=== PATIENT | female | born 1985 | race Caucasian/White ===

== ENCOUNTER 2019-05-11 10:00 | Inpatient (IN) ==
[2019-05-11] MEDS ORDERED: TUBERSOL ID ONE (13:07)
[2019-05-11] MEDS ORDERED: IMODIUM PO PRN (13:07)
[2019-05-11] MEDS ORDERED: SALINE LOCK IV FLUID XX ONE (13:07)
[2019-05-11] MEDS ORDERED: MAALOX PLUS LIQUID PO PRN (13:07)
[2019-05-11] MEDS ORDERED: DESYREL PO PRN (13:07)
[2019-05-11] MEDS ORDERED: SENOKOT PO PRN (13:07)
[2019-05-11] MEDS ORDERED: NICODERM PATCH TD PRN (13:07)
[2019-05-11] MEDS ORDERED: D5W 1,000 ML IV PRN (13:07)
[2019-05-11] MEDS ORDERED: DULCOLAX PR PRN (13:07)
[2019-05-11] MEDS ORDERED: ZOFRAN IV PRN (13:07)
[2019-05-11] MEDS ORDERED: PHENOBARBITAL IV PRN (13:07)
[2019-05-11] MEDS ORDERED: ZOFRAN ODT PO PRN (13:07)
[2019-05-11] MEDS ORDERED: BENTYL PO PRN (13:07)
[2019-05-11] MEDS ORDERED: MOTRIN PO PRN (13:07)
[2019-05-11] MEDS ORDERED: ATARAX PO PRN (13:07)
[2019-05-11 13:35] LABS: HEMATOCRIT 32.8 % (37.0-47.0); HEMOGLOBIN 10.6 g/dL (12.0-16.0); MCH 28.9 PG (27-31); MCHC 32.3 g/dL (33-37); MCV 89.4 FL (81-99); MPV 9.1 FL (7.4-10.4); RBC 3.67 XMIL (4.2-5.4); RDW 12.3 % (11.5-14.5); WBC 7.61 X1000 (4.8-10.8)
[2019-05-11 13:37] LABS: URINE SOURCE CLEAN CATCH
[2019-05-11 13:48] LABS: BILIRUBIN URINE NEGATIVE (NEGATIVE); BLOOD URINE NEGATIVE (NEGATIVE); COLOR STRAW; GLUCOSE URINE NEGATIVE (NEGATIVE); KETONE URINE NEGATIVE (NEGATIVE); LEUKOCYTES URINE SMALL (NEGATIVE); NITRITE URINE NEGATIVE (NEGATIVE); PROTEIN URINE NEGATIVE (NEGATIVE); SP GRAVITY URINE 1.007; TURBIDITY URINE CLEAR (CLEAR); UROBILINOGEN URINE NORMAL (NORMAL)
[2019-05-11 13:49] LABS: UR EPITHELIAL CELLS <10 /HPF (<10); URINE BACTERIA NEGATIVE /HPF; URINE RBC <10 /HPF (<10); URINE WBC <10 /HPF (<10)
[2019-05-11 13:50] LABS: INR 0.87; PROTIME 12.2 Seconds (11.0-16.0)
[2019-05-11 13:53] LABS: AMYLASE 42 U/L (20-200); LIPASE 23 U/L (13-60)
[2019-05-11 13:57] LABS: AGAP 13; ALBUMIN 3.8 g/dL (3.5-5.0); ALKALINE PHOSPHATASE 130 U/L (32-104); BUN 4 mg/dL (8-22); CALCIUM 8.8 mg/dL (8.8-10.2); CHLORIDE 98 mmol/L (98-107); COSMO 266; CREATININE 0.4 mg/dL (0.5-0.9); ESTIMATED GFR > 60; GLUCOSE 88 mg/dL (70-104); GOT 113 U/L (10-30); GPT 115 U/L (10-36); POTASSIUM 3.6 mmol/L (3.5-5.1); SODIUM 135 mmol/L (136-145); TCO2 24 mmol/L (25-35)
[2019-05-11 13:58] LABS: UR AMPHETAMINES QUAL PRESUMPTIVE POSITIVE (NONE DETECT); UR BARBITUATES QUAL NONE DETECTED (NONE DETECT); UR BENZODIAZEPIN QUAL PRESUMPTIVE POSITIVE (NONE DETECT); UR COCAINE QUAL NONE DETECTED (NONE DETECT); UR METHADONE QUAL NONE DETECTED (NONE DETECT); UR METHAMPHETAMINE QUAL PRESUMPTIVE POSITIVE (NONE DETECT); UR OXYCODONE QUAL PRESUMPTIVE POSITIVE (NONE DETECT)
[2019-05-11 13:59] LABS: UR CANNABINOIDS QUAL NONE DETECTED (NONE DETECT); UR OPIATES QUAL NONE DETECTED (NONE DETECT); UR PCP QUAL NONE DETECTED (NONE DETECT); UR PROPOXYPHENE QUAL NONE DETECTED (NONE DETECT); UR TCA QUAL NONE DETECTED (NONE DETECT)
[2019-05-11] MEDS ORDERED: M.V.I.-12 10 ML, FOLIC ACID 1 MG, MAGNESIUM SULFATE 1 GM, THIAMINE 100 MG in NS 1,000 ML IV ONE (14:00)
[2019-05-11] MEDS: LIBRIUM PO SCH ×2 (14:06→20:55)
[2019-05-11] MEDS ORDERED: SUBOXONE 2 MG/0.5 MG FILM SL SCH (21:00)
[2019-05-11] MEDS: SEROQUEL PO PRN (22:47)
[2019-05-12] MEDS: LIBRIUM PO SCH ×4 (00:47→18:52)
[2019-05-12] MEDS: PROTONIX PO SCH (06:46)
[2019-05-12] MEDS ORDERED: SUBOXONE 2 MG/0.5 MG FILM SL PRN (07:05)
--- NOTE | 2019-05-12 08:58 | HISTORY AND PHYSICAL ---
CHIEF COMPLAINT: Nausea and vomiting. HISTORY OF PRESENT ILLNESS: The patient is a 33-year-old female who presented to [facility] secondary to nausea and vomiting, paresthesias, paroxysmal sweating. She states that she has been drinking juice PAST MEDICAL HISTORY: Pancreatitis, elevated LFTs, hypertension, history of seizures due to withdrawal, ADHD, depression. ALLERGIES: Penicillin. MEDICATIONS: Wellbutrin 300, Adderall 30 twice daily. REVIEW OF SYSTEMS: CIWA score is 41 secondary to nausea, vomiting, paresthesias, skin crawling dry heaves, frequent sweating. Denies any chest pain, palpitations. Denies any fevers or chills. Denies dysuria, frequency, urgency, hesitancy, polyuria Does have auditory and visual hallucinations. Also has history of seizures due to withdrawal. SUBSTANCE ABUSE HISTORY: The patient was in detox in 2014 at [place], again at [place], started drinking almost immediately. In 2015, was at [place] for 3 weeks, drank immediately. In 2016, [facility] for outpatient stayed sober for 4 months. In 2017 and 2018, went back to [place], was in a residential living for 9 months sobriety for 11 months. currently is drinking 24 beers a day, drinks 3 or 4 prior to gong to work. Has been using Restoril as directed. Takes Adderall as directed although does have a history of using meth at age 23, started pain pills at 16, currently taking oxycodone 2 to 3 daily. Started smoking at 17, currently smokes 1 to 1-1/2 packs a day. PHYSICAL EXAMINATION: VITAL SIGNS: Reviewed and stable. GENERAL: Patient is awake, alert, oriented. Currently in no respiratory distress. HEENT: Normocephalic, atraumatic. ALEXANDR. NECK: Supple. No JVD. CARDIOVASCULAR: Regular rate. CHEST: Clear. ABDOMEN: Soft. EXTREMITIES: Moves all extremities. NEUROLOGIC: No focal changes. SKIN: Warm, dry. No rashes. ASSESSMENT: 1. Nausea, vomiting. 2. Abdominal pain. 3. Myalgias. 4. Paresthesias. 5. Paroxysmal sweating. 6. Alcohol abuse withdrawal and stabilization. 7. Polysubstance use and abuse. PLAN: patient in the hospital and follow. Place her on high-dose Librium taper. Further orders as needed. cc: Zafar Isaacs MD MTDD
[2019-05-12] MEDS ORDERED: VALTREX PO SCH (09:00)
[2019-05-12] MEDS: SUBOXONE 2 MG/0.5 MG FILM SL SCH ×3 (09:22→21:16)
[2019-05-12] MEDS: FOLIC ACID PO SCH (09:22)
[2019-05-12] MEDS: THERA M PLUS PO SCH (09:22)
[2019-05-12] MEDS: VITAMIN B-1 PO SCH (09:22)
[2019-05-12] MEDS ORDERED: HALL'S COUGH LOZENGE MT PRN (13:59)
--- NOTE | 2019-05-12 22:41 | PROGRESS NOTE ---
DATE: 05/12/2019 SUBJECTIVE: The patient notes that she is feeling a lot better. Notes that she appears to be having more opiate withdrawal than alcohol withdrawal issues. Notes Suboxone helped tremendously and really would like to consider staying on Suboxone after discharge. OBJECTIVE: Temperature 97.3 degrees, pulse 73, respiratory rate 18, BP 107/72. General: The patient is pleasant. She is in no current respiratory distress. HEENT: Normocephalic. Neck is supple. CV: Regular rate. Chest clear. Abdomen is soft. Extremities: Moves all extremities. ASSESSMENT: 1. Acute elevated transaminases. These are improving. 2. Nausea and vomiting. 3. Abdominal pain. 4. Tremors. 5. Myalgias. 6. Paresthesias. 7. Alcohol abuse, withdrawal and stabilization. 8. Opiate abuse, withdrawal and stabilization 9. Hypertension. PLAN: We are going to continue the patient in the hospital. Follow. Continue education. Further orders as needed. cc: Zafar Isaacs MD
[2019-05-13] MEDS: LIBRIUM PO SCH ×6 (00:35→16:39)
[2019-05-13] MEDS: PROTONIX PO SCH (06:25)
[2019-05-13] MEDS: VITAMIN B-1 PO SCH (09:35)
[2019-05-13] MEDS: FOLIC ACID PO SCH (09:35)
[2019-05-13] MEDS: SUBOXONE 2 MG/0.5 MG FILM SL SCH ×3 (09:36→20:45)
[2019-05-13] MEDS: PATIENT'S OWN MED PO SCH (09:36)
[2019-05-13] MEDS: THERA M PLUS PO SCH (09:36)
[2019-05-13] MEDS: SEROQUEL PO PRN (20:52)
[2019-05-13] MEDS: ROBAXIN PO PRN (20:52)
--- NOTE | 2019-05-13 22:01 | PROGRESS NOTE ---
DATE: 05/13/2019 SUBJECTIVE: Patient notes that she does feel better with Suboxone, but it does not last well. Her alcohol withdrawal issues are improving. PHYSICAL EXAMINATION: Temperature 97 degrees, pulse 86, respiratory rate 20, BP 126/87.General: Patient is pleasant. She is in no current respiratory distress. HEENT: Normocephalic. Neck: Supple. Cardiovascular: Regular rate. Chest: Clear. Abdomen: Soft. Extremities: Moves all extremities. Neurologic: No changes. ASSESSMENT: 1. Nausea and vomiting. 2. Abdominal pain. 3. Myalgias. 4. Paresthesias. 5. Paroxysmal sweating. 6. Alcohol abuse withdrawal and stabilization. 7. Opiate abuse withdrawal and stabilization. PLAN: We are going to continue to wean Librium, continue to increase Suboxone, continue education and counseling. Further orders as needed. cc: Zafar Isaacs MD
[2019-05-14] MEDS: PROTONIX PO SCH (06:25)
[2019-05-14] MEDS: SUBOXONE 2 MG/0.5 MG FILM SL SCH (08:20)
[2019-05-14] MEDS: LIBRIUM PO SCH ×3 (08:20→16:13)
[2019-05-14] MEDS: PATIENT'S OWN MED PO SCH (08:21)
[2019-05-14] MEDS: VITAMIN B-1 PO SCH (08:21)
[2019-05-14] MEDS: THERA M PLUS PO SCH (08:21)
[2019-05-14] MEDS: FOLIC ACID PO SCH (08:21)
[2019-05-14] MEDS: TYLENOL PO PRN ×2 (08:26→17:11)
[2019-05-14] MEDS ORDERED: SUBOXONE 2 MG/0.5 MG FILM SL ONE (08:52)
[2019-05-14] MEDS ORDERED: SUBOXONE 8 MG/2 MG FILM SL SCH (09:00)
[2019-05-14] MEDS: ROBAXIN PO PRN (20:54)
[2019-05-14] MEDS: SEROQUEL PO PRN (20:54)
[2019-05-15] MEDS: PROTONIX PO SCH (06:23)
[2019-05-15] MEDS: FOLIC ACID PO SCH (08:06)
[2019-05-15] MEDS: LIBRIUM PO SCH (08:06)
[2019-05-15] MEDS: VITAMIN B-1 PO SCH (08:06)
[2019-05-15] MEDS: THERA M PLUS PO SCH (08:06)
[2019-05-15] MEDS ORDERED: SUBOXONE 2 MG/0.5 MG FILM SL SCH (09:00)
--- NOTE | 2019-05-15 10:06 | PROGRESS NOTE ---
DATE: 05/14/2019 SUBJECTIVE: Patient notes that she is feeling better with the increase in Suboxone. Denies any current muscle aches. Denies fevers or chills. PHYSICAL EXAMINATION: Vital signs reviewed. The patient is awake, alert. She is in no distress. She is afebrile. Blood pressure stable. Pulse regular. Cardiovascular regular rate. Chest clear and nonlabored. Abdomen is soft, nondistended. Extremities: Moves all extremities. Neurologic: No focal changes. ASSESSMENT: 1. Polysubstance use and abuse. 2. Nausea and vomiting. 3. Myalgias. 4. Paresthesias. 5. Paroxysmal sweating. PLAN: We are going to continue the patient in the hospital. Patient had initially decided to increase and stay on Suboxone. However, after further information is available, it does appears as though she has been abusing Suboxone in the past. At this point, we are going to start weaning her Suboxone slowly so that she can take Vivitrol injections in the future. cc: Zafar Isaacs MD
[2019-05-15 12:00] VITALS: BP 124/72
--- NOTE | 2019-05-16 04:06 | DISCHARGE SUMMARY ---
ADMISSION DATE: 05/11/2019 DISCHARGE DATE: 05/15/2019 DISCHARGE DIAGNOSIS: 1. Nausea, vomiting. 2. Abdominal pain. 3. Myalgias. 4. Paresthesias. 5. Paroxysmal sweating. 6. Opiate abuse, withdrawal and stabilization. 7. History of pancreatitis. 8. Hypertension. 9. Depression. CONSULTATIONS: None. PROCEDURES: None. BRIEF HOSPITAL COURSE: The patient is a 33-year-old female who presented to [facility] program secondary to nausea, vomiting, abdominal pain, myalgias, paresthesias. Thankfully, she had an uneventful hospital course. She initially began weaning down from her alcohol and opiate abuse with Librium. She decided that she wanted to stay on medication assisted therapy, i.e. Suboxone, on discharge. Therefore, as we weaned Librium we were able to increase safely her Suboxone. On discharge, she is currently awake, alert. She is in no distress. DISPOSITION: Patient will be discharged home on Suboxone 8 mg/2 twice daily. Discussed her that she needs to avoid all persons, places, and situations in which she has been using and abusing in the past. She needs outpatient followup as well as life counseling. She is going to follow up outpatient with [facility]. Greater than 30 minutes was spent in total care. cc: Zafar Isaacs MD
== END 2019-05-15 13:28 | disposition home or self-care (01) | DRG 897 ==
LOC: P.MEDSURG 12:08
PROVIDERS: ADMIT Family Medicine; ATTEND Family Medicine